=== PATIENT | male | born 1980 ===

== ENCOUNTER 2022-07-02 22:46 | Inpatient (IN) | payer MEDICAID, OTHER ==
[2022-07-02] MEDS ORDERED: MAGNESIUM HYDROXIDE 2,400 MG/10 ML CUP PO PRN (22:58)
[2022-07-02] MEDS ORDERED: LORazepam 1 MG TAB PO PRN (22:58)
[2022-07-02] MEDS ORDERED: HALOPERIDOL LACTATE 5 MG/ML 1 ML VIAL IM PRN (22:58)
[2022-07-02] MEDS ORDERED: MAG HYDROX/AL HYDROX/SIMETH 30 ML CUP PO PRN (22:58)
[2022-07-02] MEDS ORDERED: ACETAMINOPHEN TAB 325 MG TAB PO PRN (22:58)
[2022-07-02] MEDS ORDERED: haloperidoL 5 MG TAB PO PRN (22:59)
[2022-07-02] MEDS ORDERED: LORazepam 2 MG/ML INJ IM PRN (22:59)
[2022-07-03] MEDS ORDERED: NICOTINE 14MG/24HR PATCH TRANSDERM SCH (09:00)
--- NOTE | 2022-07-03 09:20 | P.HP ---
Psychiatric H&P - . H&P Date: 07/03/22 History & Physical: Allergies Allergy/AdvReac Type Severity Reaction Status Date / Time No Known Allergies Allergy Verified 07/02/22 22:57 Vital Signs Temp 97.0 F L 07/03/22 05:33 Pulse 82 07/03/22 05:33 Resp 18 07/03/22 05:33 BP 115/68 07/03/22 05:33 Pulse Ox 97 07/03/22 05:33 FiO2 Intake & Output 07/02/22 07/03/22 07/03/22 18:59 06:59 18:59 Weight 84.958 kg 07/03/22 09:01 Identification: Goran Gooden is a 41 years old single male transferred from [facility] emergency department since he was thought to be hearing voices seeing visions and was feeling that people were trying to kill him. He does not speak Macedonian and was examined through an senior software test engineer. History of present illness: Patient reported that he has been feeling nervous for about 2 weeks when he is by himself and his hands shake. He lives in [facility] and came to [place] to do a [employer] job. He said his hands were shaking and told his boss who called ambulance and was taken to the e mergency department. Patient said he does not get nervous or shaky when he is working but sometimes gets nervous and his hands shake when he is by himself. He said he was taking Advil and Tylenol and some other [place]ese medication for these. He said he was assured that he will be going home at 7:00 in the morning but he does not know why he was sent here. Per the emergency department notes he was hearing voices and seeing things and was feeling that people were trying to kill him. When he was asked about this he denied all these information and said he does not know why they wrote down all those things. The ER note and medical certificate indicate he has paranoid schizophrenia. Patient insists that he is not seeing things or hearing voices and does not feel anybody is trying to kill him. He denies any other psychiatric symptoms. He insists that he will be fine when he goes back to work and is eager to return home. He said he is single and lives with his friends who work. Previous psychiatric history/drug and alcohol abuse: He said he was never in the psychiatric hospital and was never treated for any mental health issues. He denies abusing drugs. He may drink a beer or 2 once in a while and the last drink was about 2 weeks ago. Previous medical history: He denies any ALLERGIES to any medication. He denies any ongoing physical health problems. Social history: He is from [facility] and has been in the [employer] for about 20 years. He has been doing ludivina job for about 18 years. He does not socialize with non-South Sudanese speaking people and does not understand any Macedonian. He said he lives with his working friends. He had his education in [facility] before he came to [employer]. He denies any discipline or learning issues when he was growing up. He is single and has a son. But the mother of his son is with another man and they don't want him to visit his son. Family history: Denies any problem in the family. Mental status examination: This is a nonblack male who is wearing hospital gown. His hair is uncombed and he had just got up from his bed. He was examined through an senior software test engineer. He did not show any psychomotor agitation or retardation. His palms had 2 skin and had some superficial abrasions on his right knuckles. His speech was spontaneous relevant and goal-directed. His mood was mildly anxious and affect was appropriate to the thought content. He insisted that he does not hear voices, see visions and does not think anybody is trying to kill him and is wondering why people wrote down all these things in hi s chart. He did not show any behavior to suggest that he is paranoid or is hallucinating. He denies suicide and homicidal thoughts. He said he wants to go back to work finished his job here and didn't return to [place]. He does not know the name of the hotel he is staying in and he said it is in his telephone which needs to be discharged. He said today is Thursday and could not tell the exact month and year. Strengths: He is employed, did not have any mental health or general physical health problems. Weakness: Does not speak Macedonian and is not able to communicate with people who don't speak South Sudanese. Diagnostic impression: Adjustment disorder with anxiety features. Does not appear to have any psychotic features. Treatment plan: Patient will have physical examination. He signed his involuntary application. flare worker will contact his boss and work on his discharge plan. Does not appear to be in the mental health unit.
[2022-07-04 06:26] VITALS: BP 119/71; PULSE 76; RESP 15; TEMP 97.9
--- NOTE | 2022-07-04 08:58 | P.DS ---
Providers Date of admission: 07/03/22 04:57 Expected date of discharge: 07/04/22 Attending physician: Josh Patel MD Consults: 07/02/22 22:58 Consult Physician Routine Consulting Provider: [facility] Consult Reason/Comments: H&P Do you want consulting provider notified?: Yes Primary care physician: Stated None - Discharge Diagnosis(es) (1) Adjustment disorder with anxious mood Current Visit: Yes Status: Acute Priority: Low Hospital Course: Patient was transferred from [facility] ER since he was thought to be psychotic. He had his psychiatric H&P done by me on 07/03/2022 with the help of a diplomatic interpreter. Following this it was felt he did not need any medication since he was not considered to be psychotic and had only mild to moderate anxiety symptoms. He was not socializing with other patients since he was not able to speak Slovenian. He did not show any psychotic or agitated behavior. 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 Patient's boss agreed to pick him up today at 1:00 in the afternoon. He was advised not to drink alcohol at all and he agreed. Assessment: He was again seen today and assessed with the help of a certified court interpreter. Currently he is calm and cooperative does not show any psychomotor agitation or retardation. Speech is spontaneous relevant and goal-directed. Mood is euthymic to cheerful and affect is appropriate. Denies hallucinations delusiona l thinking suicide and homicidal thoughts. Sensorium is fairly clear. Health Concerns: None Pertinent Studies: None Procedures: None Patient Condition at Discharge: Stable Plan - Discharge Summary Discharge Rx Participant: No
== END 2022-07-04 14:15 | disposition home or self-care (01) | DRG 882 ==
LOC: 3MHU 07-03 04:57
PROVIDERS: ADMIT Psychiatry & Neurology Psychiatry; ATTEND Psychiatry & Neurology Psychiatry
DX: F43.22 Adjustment disorder with anxiety (principal); S60.419A Abrasion of unspecified finger, initial encounter